=== PATIENT | female | born 1965 | race Caucasian/White ===

== ENCOUNTER 2016-10-07 12:40 | Emergency (ER) | payer OTHER ==
[2016-10-07 13:06] VITALS: BP 129/67; TEMP 99
[2016-10-07] MEDS ORDERED: IPRATROPIUM/ALBUTEROL 3 ML DEYVIAL ONE (14:50)
[2016-10-07] MEDS ORDERED: IPRATROPIUM/ALBUTEROL 3 ML DEYVIAL IH ONE (15:01)
[2016-10-07] MEDS ORDERED: ALBUTEROL 3 ML DEYVIAL IH ONE (16:21)
[2016-10-07] MEDS ORDERED: predniSONE 20 MG TAB PO ONE (16:36)
--- NOTE | 2016-10-07 16:55 | UCPHY ---
H & P Time Seen by Provider: 10/07/16 15:25 Patient Type: Established HPI/ROS: 50-year-old female presents complaining of initially discuss cold symptoms now with extreme cough, with associated fevers chills myalgias . Review of systems As per HPI General positive fever positive chills no weakness HEENT no eye pain no eye discharge. No eye redness, no sore throat Respiratory positive cough, no shortness of breath Cardiac no chest pain, no peripheral edema GI no abdominal pain, no diarrhea, no constipation, no nausea, no vomiting no flank pain, no hematuria, no dysuria Musculoskeletal no myalgias, no joint pain Heme no easy bruising, no easy bleeding Endo no polyuria, no polydipsia Skin no rashes, no pruritus Neuro no syncope, no dizziness, no headaches Psych is no suicidal ideation, no homicidal ideation Past Medical/Surgical History: Seasonal allergies Social History: Alcohol socially, denies drug use Smoking Status: Former smoker Physical Exam: 50-year-old female Bronchospastic cough Alert and oriented nontoxic appearance, no acute distress afebrile Atraumatic normocephalic Extraocular muscles intact, anicteric Nares mild yellowish discharge Oropharynx mild erythema no tonsillar swelling no exudate no uvular deviation, tolerating own secretions Neck supple no lymphadenopathy Lungs clear to auscultation bilaterally, no wheezing Heart regular rate and rhythm Abdomen normoactive bowel sounds soft nontender Extremities no cyanosis clubbing or edema Skin no rash Constitutional: Initial Vital Signs Temperature (C) 37.2 C 10/07/16 13:02 Heart Rate 84 10/07/16 13:02 Respiratory Rate 16 10/07/16 13:02 Blood Pressure 129/67 H 10/07/16 13:02 O2 Sat (%) 95 10/07/16 13:02 O2 Delivery Mode Room Air Allergies/Adverse Reactions: acetaminophen [From Tylenol] Allergy (Verified 10/07/16 13:00) Home Medications: Medication Instructions Recorded Albuterol Sulfate [Albuterol 2 puffs IH QID #1 mdi 07/24/14 Inhaler Hfa] Hormones? 07/24/14 Guaifenesin/Codeine Phosphate 15 ml PO Q6 PRN #240 ml 10/07/16 [Codeine-Guaifen 10-100 mg/5 ml] IBUPROFEN 10/07/16 ZYRTEC 10/07/16 levOFLOXACIN [levAQUIN (*)] 500 mg PO DAILY #10 tab 10/07/16 methylPREDNISolone [Medrol Dose 1 each PO AD #1 ea 10/07/16 Conrad] Medical Decision Making - Diagnostics Imaging: Chest x-ray possible left lower lobe infiltrate ED Course/Re-evaluation: Patient seen and evaluated for cough fevers chills muscle aches Influenza negative Chest x-ray with possible left lower lobe infiltrate Differential diagnosis considered Bronchitis, pneumonia, influenza Impression Pneumonia Plan Levaquin 500 q.day times 10 days Albuterol inhaler Medrol Dosepak taper Codeine with guaifenesin for home In urgent care she received a DuoNeb following by a albuterol neb as well as prednisone 60 mg p.o. - Data Points Laboratory Results: 10/07/16 15:54 Influenza Typ A,B (DFA) NEGATIVE FOR FLU (NEGATIVE) Medications Given: Discontinued Medications Albuterol (Proventil Neb) 3 ml IH EDNOW ONE Stop: 10/07/16 16:22 Last Admin: 10/07/16 16:46 Dose: 3 ml Albuterol/Ipratropium (Duoneb) 3 ml IH EDNOW ONE Stop: 10/07/16 15:02 Last Admin: 10/07/16 15:05 Dose: 3 ml Prednisone (Prednisone) 60 mg PO EDNOW ONE Stop: 10/07/16 16:37 Last Admin: 10/07/16 16:46 Dose: 60 mg Departure - Departure Disposition: Home, Routine, Self-Care Clinical Impression: Pneumonia Condition: Good Instructions: Pneumonia (ED) Referrals: KARLO MUÑOZ [Primary Care Provider] - As per Instructions Prescriptions: Guaifenesin/Codeine Phosphate [Codeine-Guaifen 10-100 mg/5 ml] 15 ml PO Q6 PRN # 240 ml PRN Reason: Cough, Severe levOFLOXACIN [levAQUIN (*)] 500 mg PO DAILY #10 tab methylPREDNISolone [Medrol Dose Conrad] 1 each PO AD #1 ea - PQRS PQRS Measurement: na
[2016-10-07 17:22] VITALS: PULSE 88; RESP 14; O2SAT 97
== END 2016-10-07 17:18 | disposition home or self-care (01) ==
LOC: CED 12:40
DX: J18.9 Pneumonia, unspecified organism (principal)
CPT/HCPCS: 71020-PO; 87400-PO; 99214-PO; G0463-PO